=== PATIENT | female | born 1970 | race Hispanic/Latino ===

== ENCOUNTER 2016-05-23 07:23 | Outpatient (CLI) | payer OTHER | END 2016-05-23 07:25 | disposition short-term general hospital (02) | LOC: AMB 07:23 | DX: R51 Headache (principal); M54.2 Cervicalgia; M54.89 Other dorsalgia; R22.0 Localized swelling, mass and lump, head; V49.59XA Passenger injured in collision with other motor vehicles in traffic accident, initial encounter; Y92.414 Local residential or business street as the place of occurrence of the external cause | CPT/HCPCS: A0425; A0427 ==

== ENCOUNTER 2016-05-23 07:33 | Emergency (ER) | payer OTHER ==
[~2016-05-23] VITALS: Ht 165.1 cm; Wt 59.0 kg
== END 2016-05-23 09:45 | disposition home or self-care (01) ==
LOC: ED 07:33
DX: S13.9XXA Sprain of joints and ligaments of unspecified parts of neck, initial encounter (principal); S33.5XXA Sprain of ligaments of lumbar spine, initial encounter; S16.1XXA Strain of muscle, fascia and tendon at neck level, initial encounter; S39.012A Strain of muscle, fascia and tendon of lower back, initial encounter; S70.01XA Contusion of right hip, initial encounter; S00.93XA Contusion of unspecified part of head, initial encounter; R10.84 Generalized abdominal pain; V43.62XA Car passenger injured in collision with other type car in traffic accident, initial encounter
CPT/HCPCS: 99283; Q9963